=== PATIENT | female | born 1955 | race Caucasian/White ===

== ENCOUNTER 2016-08-30 07:55 | Day surgery (SDC) | payer OTHER ==
[2016-08-25 15:47] VITALS: BMI 31.3
[2016-08-30] MEDS ORDERED: PROPOFOL 20 ML ONE ×2 (08:57)
[2016-08-30] MEDS ORDERED: LIDOCAINE HCL/PF 2% SDV 5ML VIAL ONE (08:57)
[2016-08-30 09:51] VITALS: TEMP 98.2
[2016-08-30 10:10] VITALS: BP 115/62; PULSE 78
== END 2016-08-30 10:25 | disposition home or self-care (01) ==
LOC: FASU-ENDO 07:55
PROVIDERS: ATTEND Internal Medicine Gastroenterology
PROC: 0DJD8ZZ Inspection of Lower Intestinal Tract, Via Natural or Artificial Opening Endoscopic (ICD-10-PCS; principal; 2016-08-30 09:19)
DX: Z12.11 Encounter for screening for malignant neoplasm of colon (principal); K57.30 Diverticulosis of large intestine without perforation or abscess without bleeding

== ENCOUNTER 2020-03-05 01:04 | Emergency (ER) | payer OTHER ==
[2020-03-05] MEDS ORDERED: methylPREDNISolone NA SUCC 125 MG/2 ML VIAL IVPB ONE (01:06)
[2020-03-05] MEDS ORDERED: ALBUTEROL SO4 2.5/IPRATROPIUM 0.5 INH SOL 3 ML VIAL.NEB. NEB ONE ×2 (01:07→01:20)
[2020-03-05] MEDS ORDERED: EPINEPHrine 1:1,000 0.3 MG/0.3 ML SYR IM ONE (01:08)
--- NOTE | 2020-03-05 01:14 | PDOC ---
History of Present Illness - General Chief Complaint: Allergic Reaction Stated Complaint: allergic reaction Time Seen by Provider: 03/05/20 01:06 History Source: Patient Exam Limitations: No Limitations - History of Present Illness Initial Comments: 03/05/20 01:08 This is a 54 year old female who comes in complaining of difficulty breathing/allergic reaction. Patient took some Kate-Ardmore approximately 2 hours ago and after taking the Kate-Ardmore developed shortness of breath sensation her throat was closing and redness and itching. Patient took Zyrtec with relief. Patient denies history of similar symptoms in the past. Patient has history significant for hypertension, high cholesterol, diabetes. Allergies: as per nursing notes Past Medical History: As per HPI Social history: Lives with family. No smoking. No alcohol. No illicit drugs. Surgical history: None General: No fevers or chills, no weakness, no weight loss HEENT: No change in vision. + Sensation throat is closing,. No ear pain CardioVascular: no chest discomfort. No shortness of breath Respiratory:+ cough, + wheezing. Gastrointestinal: no nausea, vomiting, diarrhea or constipation, No rectal bleeding Genitourinary: No dysuria, hematuria, or frequency Musculoskeletal: No joint or muscle pain or swelling Neurologic: No headache, vertigo, dizziness or loss of consciousness Psychiatric: nor depression Skin: No rashes or easy bruising Endocrine: no increased thirst or abnormal weight change Allergic: no skin or latex allergy All other systems reviewed and normal Exam: General: Well-nourished well-developed individual, no acute distress HEENT: Face has generalized erythema with some angioedema of the lips and eyes throat: There is angioedema of the posterior oropharynx. tonsils normal, no erythema or exudate Neck: Supple, no meningeal signs, no lymphadenopathy Eyes::Pupils equal reactive and round, extraocular motion intact Chest: Nontender to palpation, mild expiratory wheezing bilateral Cardiac: S1-S2 normal, regular rate and rhythm, no murmurs rubs or gallops Respiratory: Mild expiratory wheezing bilateral Abdomen: Soft, nondistended, normal bowel sounds, there is no tenderness on palpation diffusely Extremities: Warm, dry, no cyanosis, clubbing, or edema Skin: No rashes Neuro: Alert and oriented x3, CN II - XII intact, nonfocal exam with normal strength, normal sensation, normal reflexes, normal gait, Psych: Normal mood and affect Assessment and plan: This is a 65-year-old female with allergic reactive. Patient given Benadryl, Solu-Medrol and EpiPen and DuoNeb. Will observe patient for 4 hours and discharge. Approximately 3 and half hours patient said she felt at her baseline wanted to be discharged. Patient's erythema, angioedema and wheezing had all resolved and patient was discharged and will follow-up with her primary care doctor. Past History - Medical History Allergies/Adverse Reactions: Allergies Allergy/AdvReac Type Severity Reaction Status Date / Time ibuprofen Allergy Intermediate hives Verified 03/05/20 01:14 aspirin [From Kate-Ardmore] Allergy Verified 03/05/20 04:10 citric acid Allergy Verified 03/05/20 04:10 [From Kate-Ardmore] sodium bicarbonate Allergy Verified 03/05/20 04:10 [From Kate-Ardmore] Home Medications: Ambulatory Orders Dapagliflozin/Metformin HCl [Xigduo Xr 5 mg-1,000 mg Tablet] 1 each PO DAILY 03/05/20 Exenatide Microspheres [Bydureon Bcise] 2 mg SQ WEEKLY 03/05/20 Glimepiride 4 mg PO DAILY 03/05/20 Methylprednisolone [Medrol Dose Salvador] 4 mg PO ASDIR #21 tablet 03/05/20 Valsartan 320 mg PO DAILY 03/05/20 Anemia: No Asthma: No Cancer: No Cardiac Disorders: No CVA: No COPD: No CHF: No Dementia: No Diabetes: Yes GI Disorders: No Disorders: No HTN: Yes Hypercholesterolemia: No Liver Disease: No Seizures: No Thyroid Disease: No - Surgical History Abdominal Surgery: No Appendectomy: No Cardiac Surgery: No Cholecystectomy: No Lung Surgery: No Neurologic Surgery: No Orthopedic Surgery: No - Immunization History Td Vaccination: Yes Immunization Up to Date: No - Psycho-Social/Smoking History Smoking Status: No Smoking History: Never smoked Number of Cigarettes Smoked Daily: 0 Discharge - Discharge Information Problems reviewed: Yes Clinical Impression/Diagnosis: Allergic reaction Condition: Stable Disposition: HOME - Admission No - Additional Discharge Information Prescriptions: Methylprednisolone [Medrol Dose Salvador] 4 mg PO ASDIR #21 tablet - Follow up/Referral - Patient Discharge Instructions Additional Instructions: Do not take any Kate-Ardmore in the future as your reaction was most likely secondary to the Kate-Ardmore. Benadryl 1 or 2 tablets every 4-6 hours as needed if symptoms begin to return. Take Medrol Dosepak and taper as per the package instruction. Return to the emergency department immediately with ANY new, persistent or worsening symptoms. Continue any medications as previously prescribed by your physician. You should follow up with your primary doctor as soon as possible regarding today's emergency department visit. . Please make sure your doctor reviews the results of your emergency evaluation. Thank you for coming to the Emergency Department today for your care. It was a pleasure to see you today. Please note that your evaluation is INCOMPLETE until you follow-up with your doctor. - Post Discharge Activity
[2020-03-05] MEDS ORDERED: EPINEPHrine/PF 1 MG/1 ML (1:1,000) AMPULE ONE (01:16)
[2020-03-05] MEDS ORDERED: ALBUTEROL SO4 2.5/IPRATROPIUM 0.5 INH SOL 3 ML VIAL.NEB. NEB STA (01:21)
[2020-03-05] MEDS ORDERED: SODIUM CHLORIDE 1,000 ML IV ONE (01:27)
[2020-03-05 01:35] VITALS: TEMP 98.1; BMI 30.5
[2020-03-05 04:09] VITALS: BP 140/73; PULSE 100
== END 2020-03-05 04:16 | disposition home or self-care (01) ==
LOC: FER 01:04
PROC: 3E0F7GC Introduction of Other Therapeutic Substance into Respiratory Tract, Via Natural or Artificial Opening (ICD-10-PCS; principal; 2020-03-05)
PROC: 3E033GC Introduction of Other Therapeutic Substance into Peripheral Vein, Percutaneous Approach (ICD-10-PCS; 2020-03-05)
PROC: 3E023GC Introduction of Other Therapeutic Substance into Muscle, Percutaneous Approach (ICD-10-PCS; 2020-03-05)
PROC: 3E0337Z Introduction of Electrolytic and Water Balance Substance into Peripheral Vein, Percutaneous Approach (ICD-10-PCS; 2020-03-05)
DX: T78.40XA Allergy, unspecified, initial encounter (principal)
CPT/HCPCS: 99284-25

== ENCOUNTER 2021-01-30 15:20 | Emergency (ER) | payer OTHER ==
[2021-01-30 15:50] VITALS: TEMP 98.7; BMI 29.6
[2021-01-30 16:28] LABS: BASO % 3.8 % (0-2.0); EOS % 2.4 % (0-4.5); HEMOGLOBIN 11.4 GM/dl (10.7-15.3); LYMPH % 12.2 % (8-40); MEAN CELL VOLUME 71.2 fl (80-96); MEAN PLT VOLUME 9.8 fl (7.5-11.1); MONO % 6.3 % (3.8-10.2); NEUT % 75.3 % (42.8-82.8); PLATELET COUNT 354 10^3/uL (134-434); RBC 5.19 M/mm3 (3.60-5.2); RDW 15.9 % (11.6-15.6); WHITE BLOOD COUNT 14.4 K/mm3 (4.0-10.8)
[2021-01-30 16:32] LABS: ADD RBC MORPHOLOGY YES
[2021-01-30 16:36] LABS: ALBUMIN 4.2 g/dl (3.4-5.0); ALK PHOS 76 U/L (45-117); ANION GAP 17 MMOL/L (8-16); BILIRUBIN,TOTAL 0.5 mg/dl (0.2-1); CALCIUM 9.4 mg/dl (8.5-10); CHLORIDE 97 mmol/L (98-107); CO2 20 mmol/L (21-32); CREATININE 0.9 mg/dl (0.55-1.3); GLUCOSE,RANDOM 252 mg/dl (74-106); SGOT/AST 41 U/L (15-37); SGPT/ALT 39 U/L (13-61); SODIUM 134 mmol/L (136-145); TOT PROT 7.9 g/dl (6.4-8.2)
[2021-01-30 17:14] LABS: ANISOCYTOSIS 1+; PLATELET ESTIMATE ADEQUATE
[2021-01-30 18:26] VITALS: BP 112/62; PULSE 80
== END 2021-01-30 18:28 | disposition home or self-care (01) ==
LOC: FER 15:20
DX: R55 Syncope and collapse (principal)
CPT/HCPCS: 36415; 80053; 82962; 84484; 85025; 93005; 99284-25

== ENCOUNTER 2021-11-16 12:14 | Emergency (ER) | payer OTHER ==
[2021-11-16 12:30] VITALS: BMI 29.7
[2021-11-16] MEDS ORDERED: BEBTELOVIMAB (EUA) 175 MG/2 ML VIAL IVPUSH ONE (12:33)
[2021-11-16 15:20] VITALS: BP 125/58; PULSE 84; TEMP 98.7
== END 2021-11-16 15:25 | disposition home or self-care (01) ==
LOC: JER 12:14
PROC: 3E033GC Introduction of Other Therapeutic Substance into Peripheral Vein, Percutaneous Approach (ICD-10-PCS; principal; 2021-11-16)
DX: U07.1 COVID-19 (principal)
CPT/HCPCS: 99284-25; Q0222

== ENCOUNTER 2024-08-13 14:52 | Observation (INO) | payer OTHER ==
[2024-08-13 15:51] LABS: BASO % 0.5 % (0-2.0); EOS % 2.4 % (0-4.5); HEMATOCRIT 35.1 % (32.4-45.2); HEMOGLOBIN 10.9 GM/dL (10.7-15.3); LYMPH % 11.7 % (8-40); MCH 23.7 pg (25.7-33.7); MEAN CELL VOLUME 76.5 fl (80-96); MEAN PLT VOLUME 8.5 fl (7.5-11.1); MONO % 7.2 % (3.8-10.2); NEUT % 78.2 % (42.8-82.8); PLATELET COUNT 537 10^3/uL (134-434); RBC 4.58 M/mm3 (3.60-5.2); RDW 16.8 % (11.6-15.6); WHITE BLOOD COUNT 14.8 K/mm3 (4.0-10.0)
[2024-08-13 15:52] LABS: URINE APPEARANCE CLEAR; URINE BILIRUBIN NEGATIVE (NEGATIVE); URINE COLOR YELLOW; URINE GLUCOSE (UA) 1+ (NEGATIVE); URINE KETONE NEGATIVE (NEGATIVE); URINE LEUK ESTERASE NEGATIVE (NEGATIVE); URINE NITRITE NEGATIVE (NEGATIVE); URINE PROTEIN NEGATIVE (NEGATIVE); URINE UROBILINOGEN 0.2 mg/dL (0.2-1.0)
[2024-08-13 16:17] LABS: CHLORIDE 104 mmol/L (98-107); POTASSIUM 4.7 mmol/L (3.5-5.1); SODIUM 139 mmol/L (136-145)
[2024-08-13 16:19] LABS: ANION GAP 12 mmol/L (4-13); CO2 23 mmol/L (21-32); MAGNESIUM 1.8 mg/dL (1.8-2.4)
[2024-08-13 16:20] LABS: ALBUMIN 3.7 g/dl (3.4-5.0); CALCIUM 9.8 mg/dL (8.5-10.1)
[2024-08-13 16:21] LABS: BLOOD UREA NITROGEN 16.9 mg/dL (7-18); GLUCOSE,RANDOM 66 mg/dL (74-106)
[2024-08-13 16:22] LABS: SGPT/ALT 28 U/L (13-61)
[2024-08-13 16:23] LABS: CREATININE 0.9 mg/dL (0.55-1.3); SGOT/AST 37 U/L (15-37)
[2024-08-13 16:24] LABS: CHOLESTEROL 95 mg/dL (50-200); PHOSPHOROUS 3.9 mg/dL (2.5-4.9); TOT PROT 7.8 g/dl (6.4-8.2)
[2024-08-13 16:25] LABS: ALK PHOS 91 U/L (45-117); BILIRUBIN,TOTAL 0.4 mg/dL (0.2-1); LDL CHOLESTEROL (ONLY SJRH) 37 mg/dL (5-100)
[2024-08-13 16:27] LABS: HDL CHOLESTEROL 45 mg/dL (40-60)
[2024-08-13] MEDS ORDERED: ASPIRIN 81 MG CHEWABLE TABLETS ONE (16:43)
[2024-08-13] MEDS ORDERED: ATORVASTATIN CA 40 MG TABLET (FP) ONE (16:43)
[2024-08-13] MEDS: ASPIRIN 81 MG CHEWABLE TABLETS PO ONE (16:46)
[2024-08-13] MEDS: ATORVASTATIN CA 40 MG TABLET (FP) PO ONE (16:46)
[2024-08-13] MEDS: LACTATED RINGERS SOLUTION 1000 ML INFUS.BAG IV ONE (17:28)
[2024-08-13 19:02] LABS: HIV INTERPRETATION NEGATIVE (NEGATIVE)
[2024-08-13 21:19] LABS: LACTIC ACID 2.8 mmol/L (0.4-2.0)
[2024-08-13] MEDS ORDERED: diphenhydrAMINE HCL 25 MG CAPSULE (FP) PO ONE (22:15)
[2024-08-13] MEDS: HYDROCORTISONE 1% TOPICAL CREAM 30 GM TUBE TP ONE (22:18)
[2024-08-13] MEDS: diphenhydrAMINE HCL 25 MG CAPSULE (FP) PO ONE (22:18)
[2024-08-14] MEDS ORDERED: traMADol HCL 50 MG TABLET PO PRN (00:14)
[2024-08-14 00:42] VITALS: RESP 18
[2024-08-14] MEDS: metoPROLOL SUCCINATE 25 MG TAB.SR.24H (FP) PO SCH (02:00)
[2024-08-14] MEDS: SODIUM CHLORIDE 1,000 ML IV SCH (02:01)
[2024-08-14] MEDS: GABAPENTIN 100 MG CAPSULE PO SCH (02:11)
[2024-08-14 02:48] VITALS: BMI 26.9
[2024-08-14] MEDS: INSULIN ASPART SLIDING SCALE (NOVOLOG) 1 VIAL SQ SCH (07:08)
[2024-08-14 08:32] LABS: HEMATOCRIT 31.4 % (32.4-45.2); HEMOGLOBIN 9.7 GM/dL (10.7-15.3); MCH 23.8 pg (25.7-33.7); MCHC 30.8 g/dl (32.0-36.0); MEAN CELL VOLUME 77.4 fl (80-96); MEAN PLT VOLUME 9.3 fl (7.5-11.1); PLATELET COUNT 488 10^3/uL (134-434); RBC 4.06 M/mm3 (3.60-5.2); RDW 16.3 % (11.6-15.6); WHITE BLOOD COUNT 13.7 K/mm3 (4.0-10.0)
[2024-08-14 09:00] VITALS: PULSE 77
[2024-08-14 09:01] LABS: POTASSIUM 4.3 mmol/L (3.5-5.1)
[2024-08-14 09:07] LABS: BLOOD UREA NITROGEN 13.8 mg/dL (7-18)
[2024-08-14 09:08] LABS: CALCIUM 8.9 mg/dL (8.5-10.1)
[2024-08-14 09:09] LABS: ALBUMIN 3.2 g/dl (3.4-5.0); MAGNESIUM 1.8 mg/dL (1.8-2.4)
[2024-08-14 09:12] LABS: CREATININE 0.7 mg/dL (0.55-1.3)
[2024-08-14 09:13] LABS: BILIRUBIN,TOTAL 0.3 mg/dL (0.2-1); PHOSPHOROUS 3.8 mg/dL (2.5-4.9)
[2024-08-14] MEDS: AMIODARONE HCL 200 MG TABLET PO SCH (09:24)
[2024-08-14] MEDS: PANTOPRAZOLE 40 MG TABLET PO SCH (09:24)
[2024-08-14] MEDS: ENOXAPARIN NA (PORCINE) 40 MG/0.4 ML DISP.SYRIN SQ SCH (09:25)
[2024-08-14] MEDS: ASPIRIN 81 MG CHEWABLE TABLETS PO SCH (09:25)
[2024-08-14] MEDS: APIXABAN 5 MG TABLET PO SCH (14:28)
[2024-08-14 15:01] VITALS: BP 138/81; TEMP 98.2
[2024-08-14] MEDS ORDERED: ATORVASTATIN CA 40 MG TABLET (FP) PO SCH (22:00)
[2024-08-14] MEDS ORDERED: GABAPENTIN 100 MG CAPSULE PO SCH (22:00)
== END 2024-08-14 15:31 | disposition home or self-care (01) ==
LOC: JER 14:52 → JERBED 22:37 → J4W 08-14 01:31
PROVIDERS: ADMIT Internal Medicine; ATTEND Internal Medicine
PROC: 3E023GC Introduction of Other Therapeutic Substance into Muscle, Percutaneous Approach (ICD-10-PCS; principal; 2024-08-13)
PROC: 3E013VG Introduction of Insulin into Subcutaneous Tissue, Percutaneous Approach (ICD-10-PCS; 2024-08-13)
PROC: 3E0337Z Introduction of Electrolytic and Water Balance Substance into Peripheral Vein, Percutaneous Approach (ICD-10-PCS; 2024-08-13)
DX: M62.81 Muscle weakness (generalized) (principal); I11.0 Hypertensive heart disease with heart failure; E87.20 Acidosis, unspecified; D50.9 Iron deficiency anemia, unspecified; E11.9 Type 2 diabetes mellitus without complications; I25.2 Old myocardial infarction; Z29.89 Encounter for other specified prophylactic measures; Z88.8 Allergy status to other drugs, medicaments and biological substances
CPT/HCPCS: 0241U-QW; 36415; 70450-TC; 71045-TC-FY; 80053; 80061; 81003; 82550; 82728; 82962; 83036; 83540; 83550; 83605; 83735; 84100; 84439; 84443; 84484; 85025; 85027; 86803; 86850; 86900; 86901; 87086; 87389; 93005; 93010; 97116-GP; 97161-GP; 99285-25; G0378